=== PATIENT | male | born 1950 | race Caucasian/White ===

== ENCOUNTER 2021-03-28 18:37 | Emergency (ER) | payer MEDICARE, OTHER ==
--- NOTE | 2021-03-28 19:14 | EDM.PDOC ---
ED HPI GENERAL MEDICAL PROBLEM - General Chief Complaint: Respiratory Problem Stated Complaint: DIZZY, SHORTNESS OF BREATH Time Seen by Provider: 03/28/21 19:05 Source of Information: Reports: Patient, Family History Limitations: Reports: No Limitations - History of Present Illness INITIAL COMMENTS - FREE TEXT/NARRATIVE: ED with c/o dizziness intermittent past 2 weeks, some worse today, worse with changing positions. No weakness or speech difficulties. No ches tpain. Hx cardiac stents x2 stent in abdominal oarta. Recent change with addition of amlodipine to meds 2 weeks ago. Usual swelling. Has nebs and inhaler. Primary Care in Home. Has not contacted PCP. Past Medical History Cardiovascular History: Reports: CAD, Stents Respiratory History: Reports: COPD - Infectious Disease History Infectious Disease History: Reports: None Social & Family History - Tobacco Use Tobacco Use Status *Q: Former Tobacco User Used Tobacco, but Quit: Yes Month/Year Tobacco Last Used: 09/2010 - Caffeine Use Caffeine Use: Reports: None - Recreational Drug Use Recreational Drug Use: No ED ROS GENERAL - Review of Systems Review Of Systems: Comprehensive ROS is negative, except as noted in HPI. ED EXAM, GENERAL - Physical Exam Exam: See Below Exam Limited By: No Limitations General Appearance: Alert, No Apparent Distress Eye Exam: Bilateral Eye: EOMI Ears: Normal External Exam Nose: Normal Inspection Throat/Mouth: Normal Inspection Head: Atraumatic, Normocephalic Neck: Normal Inspection Respiratory/Chest: No Respiratory Distress, Lungs Clear, Normal Breath Sounds Cardiovascular: Normal Peripheral Pulses GI/Abdominal: Normal Bowel Sounds, Soft Back Exam: Normal Inspection Extremities: Normal Inspection Neurological: Alert, Oriented, Normal Cognition. No: Sensory/Motor Deficit Psychiatric: Normal Affect Skin Exam: Warm, Dry, Intact, Normal Color #1 Interpretation EKG Date: 03/28/21 Time: 18:56 Rhythm: NSR Rate (Beats/Min): 75 [place]: Normal P-Wave: Present QRS: RBBB QT: Normal MN/PQ Interval: 219 Comparison: NA - No Prior EKG EKG Interpretation Comments: Sinus rhythm 1st degree AV block rare PAC Course - Vital Signs Last Recorded V/S: Last Vital Signs Temp 98.1 F 03/28/21 19:03 Pulse 74 03/28/21 19:03 Resp 16 03/28/21 19:03 BP 139/79 03/28/21 19:03 Pulse Ox 98 03/28/21 19:03 - Orders/Labs/Meds Labs: Laboratory Tests 03/28/21 03/28/21 03/28/21 Range/Units 19:29 19:29 19:29 WBC 9.2 (5.0-10.0) 10^3/uL RBC 4.60 (4.6-6.2) 10^6/uL Hgb 13.8 L (14.0-18.0) g/dL Hct 41.7 (40.0-54.0) % MCV 90.7 (80-100) fL MCH 30.0 (27.0-34.0) pg MCHC 33.1 (33.0-35.0) g/dL Plt Count 192 (150-450) 10^3/uL Neut % (Auto) 62.9 (42.2-75.2) % Lymph % (Auto) 24.3 (20.5-50.1) % [place] % (Auto) 10.3 H (2-8) % Eos % (Auto) 2.2 (1.0-3.0) % Baso % (Auto) 0.3 (0.0-1.0) % PT 10.4 (9.0-12.0) SEC INR 1.0 (0.9-1.2) D-Dimer, Quantitative 812 H (0-400) ng/mL Sodium 137 (136-145) mmol/L Potassium 3.1 L (3.5-5.1) mmol/L Chloride 99 (98-107) mmol/L Carbon Dioxide 27 (21-32) mmol/L Anion Gap 14.1 H (7-13) mEq/L BUN 17 (7-18) mg/dL Creatinine 1.43 H (0.70-1.30) mg/dL Est Cr Clr Drug Dosing 57.98 mL/min Estimated GFR (MDRD) 48 BUN/Creatinine Ratio 11.9 (No establ ref range) Glucose 103 H (70-99) mg/dL Calcium 8.7 (8.5-10.1) mg/dL Magnesium 2.0 (1.8-2.4) mg/dL Total Bilirubin 0.6 (0.2-1.0) mg/dL AST 19 (15-37) U/L ALT 29 (16-63) U/L Alkaline Phosphatase 68 (46-116) U/L Troponin I High Sens 15 (<=76) pg/mL B-Natriuretic Peptide 107 H (0-100) pg/ml Total Protein 6.9 (6.4-8.2) g/dL Albumin 3.6 (3.4-5.0) g/dL Globulin 3.3 Albumin/Globulin Ratio 1.1 Meds: Medications Discontinued Medications Generic Name Dose Route Start Last Admin Trade Name Kelechi PRN Reason Stop Dose Admin Potassium Chloride 20 meq 03/28/21 20:46 03/28/21 21:10 Potassium Chloride 10 Meq Tab.Er PO 03/28/21 20:47 20 meq ONETIME ONE Administration Departure - Departure Time of Disposition: 20:56 Disposition: Home, Self-Care 01 Condition: Good Clinical Impression: Dizziness - Discharge Information *PRESCRIPTION DRUG MONITORING PROGRAM REVIEWED*: No *COPY OF PRESCRIPTION DRUG MONITORING REPORT IN PATIENT ALBERTO: No Instructions: Dizziness, [id number] Referrals: PCP,None [Primary Care Provider] - Forms: ED Department Discharge Additional Instructions: increase potassium in diet follow up in clinic change positions slowly urgent follow up weakenss, difficulty with speech or chest pain Sepsis Event Note (ED) - Evaluation Sepsis Screening Result: No Definite Risk
[2021-03-28 19:58] LABS: ANION GAP 14.1 mEq/L (7-13)
--- NOTE | 2021-03-28 20:16 | CT ---
PROCEDURE INFORMATION: Exam: CT Head Without Contrast Exam date and time: 03/28/2021 7:40 PM Age: 71 years old Clinical indication: Dizziness; Additional info: Dizzy SOB TECHNIQUE: Imaging protocol: Computed tomography of the head without contrast. Radiation optimization: All CT scans at this facility use at least one of these dose optimization techniques: automated exposure control; mA and/or kV adjustment per patient size (includes targeted exams where dose is matched to clinical indication); or iterative reconstruction. COMPARISON: No relevant prior studies available. FINDINGS: Brain: Normal. No hemorrhage. Unremarkable white matter. No mass effect. Cerebral ventricles: No ventriculomegaly. Paranasal sinuses: Visualized sinuses are unremarkable. No fluid levels. Mastoid air cells: Visualized mastoid air cells are well aerated. Bones/joints: Unremarkable. No acute fracture. Soft tissues: Unremarkable. IMPRESSION: No acute intracranial abnormality.
--- NOTE | 2021-03-28 20:21 | CR ---
PROCEDURE INFORMATION: Exam: XR Chest Exam date and time: 03/28/2021 7:42 PM Age: 71 years old Clinical indication: Shortness of breath; Additional info: Dizzy SOB TECHNIQUE: Imaging protocol: XR of the chest. Views: 1 view. COMPARISON: No relevant prior studies available. FINDINGS: Lungs: Lungs hyperexpanded. Linear opacity in the left base likely due to subsegmental atelectasis. 2.2 cm nodular opacity in the left perihilar region may be related to regional vasculature. However, the possibility of a pulmonary nodule is not excluded. Chest CT recommended for further evaluation. Pleural spaces: Unremarkable. No pleural effusion. No pneumothorax. Heart/Mediastinum: Unremarkable. No cardiomegaly. Bones/joints: Unremarkable. IMPRESSION: COPD. Possible left perihilar nodule. CT recommended for further evaluation.
[2021-03-28] MEDS ORDERED: Potassium Chloride 10 MEQ Tab.ER PO ONE (20:46)
== END 2021-03-28 21:13 | disposition home or self-care (01) ==
LOC: DL.ED 18:37
DX: R42 Dizziness and giddiness (principal); I25.10 Atherosclerotic heart disease of native coronary artery without angina pectoris; J44.9 Chronic obstructive pulmonary disease, unspecified; Z95.5 Presence of coronary angioplasty implant and graft; Z87.891 Personal history of nicotine dependence
CPT/HCPCS: 36415; 70450; 71045; 80053; 83735; 83880; 84484; 85025; 85379; 85610; 93005; 99284-25; A9270-GY